=== PATIENT | female | born 2000 | race Caucasian/White ===

== ENCOUNTER 2019-03-03 10:44 | Observation (INO) ==
[2019-03-03] MEDS ORDERED: SODIUM CHLORIDE 0.9% 500 ML IV STA (11:32)
[2019-03-03] MEDS ORDERED: ACETAMINOPHEN 500 MG TABLET ONE (12:27)
[2019-03-03] MEDS ORDERED: ACETAMINOPHEN 500 MG TABLET PO STA (12:33)
[2019-03-03 13:00] LABS: Apearance,Urine Slightly Hazy (Clear); Glucose,Urine (UA) Negative (Negative); Ketones,Urine 3+ mg/dL (Negative); Nitrite,Urine Negative (Negative); Protein,Urine 1+ MG/DL; Urine Color Yellow (Yellow); Urine Specific Gravity 1.015 (1.001-1.035)
[2019-03-03 13:01] LABS: Bacteria,Urine 2+ /HPF (Few); Bilirubin,Urine Negative (Negative); Blood, Urine Large mg/dL (Negative); RBC,Urine TNTC /HPF (0-4); Squamous Epithelial Cell,Urine Few /HPF (0-10); Urine Urobilinogen < 2.0 EU/DL (0.2-1.0); WBC,Urine Occasional /HPF (0-6)
[2019-03-03] MEDS ORDERED: ONDANSETRON 4 MG/2 ML VIAL ONE (13:21)
[2019-03-03] MEDS ORDERED: MAGNESIUM HYDROXIDE SUSP 30 ML UDCUP PO PRN (13:28)
[2019-03-03] MEDS ORDERED: IBUPROFEN 800 MG TABLET PO PRN (13:28)
[2019-03-03] MEDS ORDERED: BISACODYL 10 MG SUPP RECTAL PRN (13:28)
[2019-03-03] MEDS ORDERED: LACTATED RINGERS 1,000 ML IV SCH (13:30)
[2019-03-03] MEDS ORDERED: MEPERIDINE 50 MG/1 ML VIAL IM STA (13:31)
[2019-03-03] MEDS ORDERED: MEPERIDINE 25 MG/1 ML VIAL ONE (13:38)
[2019-03-03] MEDS: ONDANSETRON 4 MG/2 ML VIAL IV PRN ×2 (14:00→19:46)
[2019-03-03] MEDS ORDERED: MEPERIDINE 25 MG/1 ML VIAL IV PRN (15:31)
[2019-03-03] MEDS: LACTATED RINGERS 1,000 ML IV SCH ×2 (15:50→23:54)
[2019-03-03] MEDS: AMPICILLIN INJ 2,000 MG in SODIUM CHLORIDE 0.9% 100 ML IV SCH ×2 (16:10→22:08)
[2019-03-03 17:40] LABS: Basophils # 0.1 10*3/uL (0.0-0.2); Basophils % 0.3 % (0.0-0.8); Hematocrit 36.7 VOL% (35.7-47.0); Hemoglobin 11.7 GM/DL (12.0-16.0); Immature Granulocytes Absolute 0.22 #; Lymphocytes # 0.7 10*3/uL (1.4-4.0); Lymphocytes % 3.1 % (21.3-54.2); Mean Corpuscular HGB Conc 31.9 GM/DL (32-36); Mean Corpuscular Volume 91.1 FL (87-102); Mean Platelet Volume 10.3 FL (9.6-12.0); Monocytes % 1.2 % (1.7-12.7); Neutrophils % 94.4 % (38.7-73.9); Platelet Count 254 T/CUMM (130-400); Red Blood Count 4.03 MC/CUMM (3.8-5.5); Red Cell Distribution Width 13.3 % (9.3-17.3); White Blood Count 22.3 T/CUMM (4-12)
[2019-03-03 17:52] LABS: Calcium 8.7 MG/DL (8.5-10.1); Osmolality,Calculated 273.7 MOS/KG (273-304)
[2019-03-03 18:01] LABS: Band Neutrophils 1 % (0-10); Lymphocytes 5 % (20-55); Platelet Estimate Normal; Segmented Neutrophils 94 % (50-85); Total Cells Counted 100
[2019-03-03] MEDS: MEPERIDINE 25 MG/1 ML VIAL IV PRN ×2 (18:10→22:08)
[2019-03-03 18:21] LABS: Apearance,Urine CLEAR (Clear); Bilirubin,Urine Negative (Negative); Blood, Urine Small mg/dL (Negative); Glucose,Urine (UA) Negative (Negative); Ketones,Urine 80 mg/dL (Negative); Mucus,Urine Occasional /LPF (Occasional); Nitrite,Urine Negative (Negative); Protein,Urine Negative; RBC,Urine 14 /HPF (0-4); Squamous Epithelial Cell,Urine Occasional /HPF (0-10); Urine Color Straw (Yellow); Urine Specific Gravity 1.017 (1.001-1.035); Urine Urobilinogen < 2.0 EU/DL (0.2-1.0); WBC,Urine 2 /HPF (0-6)
[2019-03-03] MEDS: DOCUSATE SODIUM 100 MG CAPSULE PO SCH (21:15)
[2019-03-03] MEDS: TAMSULOSIN 0.4 MG CAPSULE PO SCH (21:15)
[2019-03-03] MEDS: PROMETHAZINE 25 MG/1 ML VIAL IM PRN (21:23)
[2019-03-04] MEDS: MEPERIDINE 25 MG/1 ML VIAL IV PRN ×6 (01:55→23:43)
[2019-03-04] MEDS: ONDANSETRON 4 MG/2 ML VIAL IV PRN ×5 (01:56→23:44)
[2019-03-04] MEDS ORDERED: ALUMINUM/MAGNES/SIMETH MAX STR 30 ML UDCUP PO PRN (02:01)
[2019-03-04] MEDS: AMPICILLIN INJ 2,000 MG in SODIUM CHLORIDE 0.9% 100 ML IV SCH ×4 (04:42→22:10)
[2019-03-04] MEDS: LACTATED RINGERS 1,000 ML IV SCH ×2 (06:35→22:10)
[2019-03-04] MEDS: FAMOTIDINE 20 MG/2 ML VIAL IV SCH ×2 (08:22→20:59)
[2019-03-04] MEDS: PROMETHAZINE 25 MG/1 ML VIAL IM PRN (08:26)
[2019-03-04] MEDS: ACETAMINOPHEN 325 MG TABLET PO PRN ×2 (12:42→20:05)
[2019-03-04] MEDS: DOCUSATE SODIUM 100 MG CAPSULE PO SCH ×2 (15:28→20:58)
[2019-03-04] MEDS: TAMSULOSIN 0.4 MG CAPSULE PO SCH (20:58)
[2019-03-05] MEDS: ONDANSETRON 4 MG/2 ML VIAL IV PRN (03:19)
[2019-03-05] MEDS: AMPICILLIN INJ 2,000 MG in SODIUM CHLORIDE 0.9% 100 ML IV SCH ×2 (04:26→08:30)
[2019-03-05] MEDS: ACETAMINOPHEN 325 MG TABLET PO PRN (05:39)
[2019-03-05] MEDS: LACTATED RINGERS 1,000 ML IV SCH (06:41)
[2019-03-05] MEDS: DOCUSATE SODIUM 100 MG CAPSULE PO SCH (08:12)
[2019-03-05] MEDS: FAMOTIDINE 20 MG/2 ML VIAL IV SCH (08:30)
[2019-03-05] MEDS: MEPERIDINE 25 MG/1 ML VIAL IV PRN (08:31)
[2019-03-05 11:35] VITALS: BP 116/61
== END 2019-03-05 14:20 | disposition home or self-care (01) ==
LOC: N.EDINP 10:44 → N.ED 10:44 → N.OB 14:29
PROVIDERS: ADMIT Obstetrics & Gynecology; ATTEND Obstetrics & Gynecology

== ENCOUNTER 2019-03-30 13:14 | Inpatient (IN) ==
[2019-03-30] MEDS ORDERED: SODIUM CHLORIDE 0.9% 1,000 ML IV STA ×2 (14:51→15:29)
[2019-03-30] MEDS ORDERED: HYDROmorphone 2 MG/1 ML VIAL IV STA (14:51)
[2019-03-30] MEDS ORDERED: ONDANSETRON 4 MG/2 ML VIAL IV STA (14:51)
[2019-03-30 15:33] LABS: Basophils % 0.2 % (0.0-0.8); Eosinophils % 0.1 % (0.00-10.9); Hematocrit 38.2 VOL% (35.7-47.0); Hemoglobin 12.1 GM/DL (12.0-16.0); Immature Granulocytes % 1.1 %; Immature Granulocytes Absolute 0.18 #; Lymphocytes # 1.2 10*3/uL (1.4-4.0); Lymphocytes % 7.4 % (21.3-54.2); Mean Corpuscular HGB Conc 31.7 GM/DL (32-36); Mean Corpuscular Volume 91.8 FL (87-102); Mean Platelet Volume 10.5 FL (9.6-12.0); Monocytes % 2.9 % (1.7-12.7); Neutrophils % 88.3 % (38.7-73.9); Platelet Count 227 T/CUMM (130-400); Red Blood Count 4.16 MC/CUMM (3.8-5.5); Red Cell Distribution Width 13.8 % (9.3-17.3); White Blood Count 16.6 T/CUMM (4-12)
[2019-03-30 15:34] LABS: Amorphous Crystals,Urine Occasional /HPF (Few); Apearance,Urine CLOUDY (Clear); Bilirubin,Urine Negative (Negative); Blood, Urine Negative (Negative); Glucose,Urine (UA) Negative (Negative); Ketones,Urine 80 mg/dL (Negative); Mucus,Urine Occasional /LPF (Occasional); Nitrite,Urine Negative (Negative); Protein,Urine 30 MG/DL; Squamous Epithelial Cell,Urine Occasional /HPF (0-10); Urine Color Amber (Yellow); Urine Specific Gravity 1.017 (1.001-1.035); Urine Urobilinogen < 2.0 EU/DL (0.2-1.0)
[2019-03-30 15:41] LABS: Alanine Aminotransferase 19 U/L (13-56); Albumin 3.3 G/DL (3.4-5.0); Alkaline Phosphatase 62 U/L (45-117); Aspartate Amino Transferase 14 U/L (0-37); Bilirubin,Total < 0.39 MG/DL (0.2-1.0); Blood Urea Nitrogen 7 MG/DL (7-18); Calcium 8.7 MG/DL (8.5-10.1); Glucose 103 MG/DL (74-106); Osmolality,Calculated 274.5 MOS/KG (273-304); Total Protein 7.2 G/DL (6.4-8.3)
[2019-03-30] MEDS ORDERED: LACTATED RINGERS 1,000 ML IV SCH (16:56)
[2019-03-30] MEDS ORDERED: IBUPROFEN 800 MG TABLET PO PRN (16:56)
[2019-03-30] MEDS ORDERED: MAGNESIUM HYDROXIDE SUSP 30 ML UDCUP PO PRN (16:56)
[2019-03-30] MEDS ORDERED: BISACODYL 10 MG SUPP RECTAL PRN (16:56)
[2019-03-30] MEDS: ACETAMINOPHEN 325 MG TABLET PO PRN (17:47)
[2019-03-30] MEDS: ONDANSETRON 4 MG/2 ML VIAL IV PRN (20:42)
[2019-03-30] MEDS: HYDROmorphone 2 MG/1 ML VIAL IV PRN (20:48)
[2019-03-30] MEDS: TAMSULOSIN 0.4 MG CAPSULE PO SCH (21:35)
[2019-03-30] MEDS: DOCUSATE SODIUM 100 MG CAPSULE PO SCH (21:51)
[2019-03-30] MEDS: ALUMINUM/MAGNES/SIMETH MAX STR 30 ML UDCUP PO PRN (23:43)
[2019-03-31] MEDS: HYDROmorphone 2 MG/1 ML VIAL IV PRN ×5 (01:06→21:02)
[2019-03-31] MEDS: LACTATED RINGERS 1,000 ML IV SCH ×3 (01:26→17:05)
[2019-03-31] MEDS: ONDANSETRON 4 MG/2 ML VIAL IV PRN ×4 (02:37→18:55)
[2019-03-31] MEDS: DOCUSATE SODIUM 100 MG CAPSULE PO SCH ×2 (14:30→21:02)
[2019-03-31] MEDS: TAMSULOSIN 0.4 MG CAPSULE PO SCH (21:02)
[2019-03-31] MEDS: ALUMINUM/MAGNES/SIMETH MAX STR 30 ML UDCUP PO PRN (21:35)
[2019-04-01] MEDS: ONDANSETRON 4 MG/2 ML VIAL IV PRN ×3 (02:01→15:48)
[2019-04-01] MEDS: HYDROmorphone 2 MG/1 ML VIAL IV PRN ×2 (02:04→10:07)
[2019-04-01] MEDS: DOCUSATE SODIUM 100 MG CAPSULE PO SCH ×2 (09:52→20:44)
[2019-04-01] MEDS: ACETAMINOPHEN 325 MG TABLET PO PRN (16:05)
[2019-04-01] MEDS: ACETAMINOPHEN/CODEINE 300-30 MG TABLET PO PRN (18:19)
[2019-04-01] MEDS: TAMSULOSIN 0.4 MG CAPSULE PO SCH (20:43)
[2019-04-02] MEDS ORDERED: ONDANSETRON 4 MG TABLET PO PRN
[2019-04-02] MEDS: ONDANSETRON 4 MG/2 ML VIAL IV PRN (00:03)
[2019-04-02] MEDS: ACETAMINOPHEN/CODEINE 300-30 MG TABLET PO PRN (00:33)
[2019-04-02 07:45] VITALS: BP 80/43
[2019-04-02] MEDS: DOCUSATE SODIUM 100 MG CAPSULE PO SCH (08:51)
[2019-04-05 13:59] LABS: Stone Source Kidney
[2019-04-05 14:56] LABS: Stone Source Kidney
== END 2019-04-02 12:00 | disposition home or self-care (01) | DRG 776 ==
LOC: N.ED 13:14 → N.EDINP 15:33 → N.OB 15:59
PROVIDERS: ADMIT Obstetrics & Gynecology; ATTEND Obstetrics & Gynecology

== ENCOUNTER 2019-08-16 06:08 | Inpatient (IN) ==
[2019-08-16] MEDS ORDERED: ONDANSETRON 4 MG/2 ML VIAL IV PRN (06:21)
[2019-08-16] MEDS ORDERED: MEPERIDINE 50 MG/1 ML VIAL IV PRN (06:21)
[2019-08-16 06:38] LABS: Basophils # 0.1 10*3/uL (0.0-0.2); Basophils % 0.4 % (0.0-0.8); Eosinophils # 0.2 10*3/uL (0.0-0.87); Eosinophils % 1.1 % (0.00-10.9); Hematocrit 37.1 VOL% (35.7-47.0); Hemoglobin 12.2 GM/DL (12.0-16.0); Immature Granulocytes % 2.6 %; Lymphocytes % 19.6 % (21.3-54.2); Mean Corpuscular HGB Conc 32.9 GM/DL (32-36); Mean Corpuscular Volume 92.3 FL (87-102); Mean Platelet Volume 10.4 FL (9.6-12.0); Monocytes % 4.9 % (1.7-12.7); Neutrophils % 71.4 % (38.7-73.9); Platelet Count 243 T/CUMM (130-400); Red Blood Count 4.02 MC/CUMM (3.8-5.5); Red Cell Distribution Width 14.4 % (9.3-17.3); White Blood Count 15.2 T/CUMM (4-12)
[2019-08-16] MEDS: LACTATED RINGERS 1,000 ML IV SCH ×2 (06:48→14:47)
[2019-08-16 06:57] LABS: Apearance,Urine CLEAR (Clear); Bacteria,Urine Occasional /HPF (Few); Bilirubin,Urine Negative (Negative); Blood, Urine Negative (Negative); Glucose,Urine (UA) Negative (Negative); Ketones,Urine Negative (Negative); Mucus,Urine Occasional /LPF (Occasional); Nitrite,Urine Negative (Negative); Protein,Urine Negative; RBC,Urine 1 /HPF (0-4); Squamous Epithelial Cell,Urine Occasional /HPF (0-10); Urine Color Yellow (Yellow); Urine Urobilinogen < 2.0 EU/DL (0.2-1.0); WBC,Urine 1 /HPF (0-6)
[2019-08-16 07:08] LABS: Albumin 2.8 G/DL (3.4-5.0); Bilirubin,Total 0.6 MG/DL (0.2-1.0); Calcium 9.3 MG/DL (8.5-10.1); Osmolality,Calculated 276.5 MOS/KG (273-304); Total Protein 6.7 G/DL (6.4-8.3)
[2019-08-16] MEDS: OXYTOCIN/LR 20 UNIT/1,000 ML BAG IV SCH ×2 (07:17→19:23)
[2019-08-16] MEDS ORDERED: FAMOTIDINE 20 MG/2 ML VIAL IV ONE (07:49)
[2019-08-16] MEDS ORDERED: CITRIC ACID/SODIUM CITRATE 30 ML UDCUP PO ONE (07:49)
[2019-08-16] MEDS ORDERED: LACTATED RINGERS 1,000 ML IV ONE (07:49)
[2019-08-16] MEDS ORDERED: ePHEDrine 50 MG/ML AMP IV PRN (07:49)
[2019-08-16] MEDS ORDERED: diphenhydrAMINE 50 MG/1 ML VIAL IV PRN ×2 (07:50)
[2019-08-16] MEDS ORDERED: hydrOXYzine HCL 25 MG/1 ML VIAL IM PRN (07:50)
[2019-08-16] MEDS ORDERED: PROMETHAZINE 25 MG/1 ML VIAL IM ONE (07:50)
[2019-08-16] MEDS ORDERED: NALOXONE 0.4 MG/ML VIAL IV PRN (07:50)
[2019-08-16] MEDS ORDERED: fentaNYL 2 MCG/ROPIV 0.2% EPID 100 ML EPIDURAL SCH (08:00)
[2019-08-16] MEDS ORDERED: LACTATED RINGERS 1,000 ML IV SCH (08:00)
[2019-08-16] MEDS ORDERED: METOPROLOL TARTRATE 25 MG TABLET PO SCH (09:00)
[2019-08-16 11:05] LABS: Apearance,Urine CLEAR (Clear); Bacteria,Urine Occasional /HPF (Few); Bilirubin,Urine Negative (Negative); Blood, Urine Negative (Negative); Glucose,Urine (UA) Negative (Negative); Ketones,Urine Negative (Negative); Mucus,Urine Occasional /LPF (Occasional); Nitrite,Urine Negative (Negative); Protein,Urine Negative; Squamous Epithelial Cell,Urine Occasional /HPF (0-10); Urine Color Straw (Yellow); Urine Specific Gravity 1.005 (1.001-1.035); Urine Urobilinogen < 2.0 EU/DL (0.2-1.0); WBC,Urine 1 /HPF (0-6)
[2019-08-16] MEDS ORDERED: miSOPROStoL 200 MCG TABLET ONE (15:47)
[2019-08-16] MEDS ORDERED: METHYLERGONOVINE 0.2 MG/1 ML AMP ONE (15:48)
[2019-08-16 16:30] LABS: Cord Venous Blood HCO3 22.5 MMOL/L; Cord Venous Blood PCO2 37.5 MMHG; Cord Venous Blood PO2 29.1
[2019-08-16] MEDS ORDERED: OXYTOCIN/LR 20 UNIT/1,000 ML BAG IV ONE (20:34)
[2019-08-16] MEDS ORDERED: oxyCODONE/ACETAMINOPHEN 5-325 MG TABLET PO PRN ×2 (20:34)
[2019-08-16] MEDS ORDERED: WITCH HAZEL PADS 100/JAR TOP PRN (20:34)
[2019-08-16] MEDS ORDERED: LANOLIN 50% CREAM 0.3 OZ TUBE TOP PRN (20:34)
[2019-08-16] MEDS ORDERED: IBUPROFEN 800 MG TABLET PO PRN (20:34)
[2019-08-16] MEDS ORDERED: ACETAMINOPHEN 325 MG TABLET PO PRN (20:34)
[2019-08-16] MEDS ORDERED: BENZOCAINE 20%/MENTHOL 0.5% SPRAY 56 GM CAN TOP PRN (20:34)
[2019-08-16] MEDS ORDERED: RHO(D) IMMUNE GLOBULIN 300 MCG SYRINGE IM ONE (20:34)
[2019-08-16] MEDS ORDERED: DIPH/TET/ACEL PERT BOOSTER VACCINE 0.5 ML VIAL IM ONE (20:34)
[2019-08-16] MEDS ORDERED: HYDROCORTISONE 2.5% RECTAL CREAM 30 GM TUBE TOP PRN (20:34)
[2019-08-16] MEDS ORDERED: MEASLES/MUMPS/RUBELLA VACCINE 0.5 ML VIAL SUBCUT ONE (20:34)
[2019-08-16] MEDS ORDERED: BISACODYL 10 MG SUPP RECTAL PRN (20:34)
[2019-08-16] MEDS: METOPROLOL TARTRATE 25 MG TABLET PO SCH (21:11)
[2019-08-16] MEDS: DOCUSATE SODIUM 100 MG CAPSULE PO SCH (21:13)
[2019-08-17 05:36] LABS: Basophils # 0.1 10*3/uL (0.0-0.2); Basophils % 0.3 % (0.0-0.8); Eosinophils # 0.2 10*3/uL (0.0-0.87); Eosinophils % 0.8 % (0.00-10.9); Hematocrit 34.4 VOL% (35.7-47.0); Hemoglobin 11.3 GM/DL (12.0-16.0); Immature Granulocytes % 1.2 %; Immature Granulocytes Absolute 0.21 #; Lymphocytes # 2.8 10*3/uL (1.4-4.0); Lymphocytes % 15.6 % (21.3-54.2); Mean Corpuscular HGB Conc 32.8 GM/DL (32-36); Mean Corpuscular Volume 91.7 FL (87-102); Mean Platelet Volume 11.2 FL (9.6-12.0); Monocytes % 7.2 % (1.7-12.7); Neutrophils % 74.9 % (38.7-73.9); Platelet Count 229 T/CUMM (130-400); Red Blood Count 3.75 MC/CUMM (3.8-5.5); Red Cell Distribution Width 14.5 % (9.3-17.3)
[2019-08-17 07:20] VITALS: BP 124/75
[2019-08-17] MEDS: DOCUSATE SODIUM 100 MG CAPSULE PO SCH (07:58)
[2019-08-17] MEDS: METOPROLOL TARTRATE 25 MG TABLET PO SCH (11:45)
== END 2019-08-17 11:25 | disposition home or self-care (01) | DRG 560 ==
LOC: N.LDOUT 06:08 → N.LD 06:10 → N.OB 20:05
PROVIDERS: ADMIT Obstetrics & Gynecology; ATTEND Obstetrics & Gynecology

== ENCOUNTER 2021-03-21 05:34 | Inpatient (IN) ==
[2021-03-21] MEDS ORDERED: MEPERIDINE 50 MG/1 ML VIAL IV PRN (05:42)
[2021-03-21] MEDS ORDERED: ONDANSETRON 4 MG/2 ML VIAL IV PRN ×2 (05:42→09:37)
[2021-03-21] MEDS ORDERED: BUTORPHANOL 2 MG/ML VIAL IV PRN (05:42)
[2021-03-21] MEDS ORDERED: LACTATED RINGERS 1,000 ML IV SCH (06:00)
[2021-03-21] MEDS: OXYTOCIN/LR 20 UNIT/1,000 ML BAG IV SCH ×2 (06:06→14:43)
[2021-03-21 06:30] LABS: Basophils % 0.2 % (0.0-0.8); Eosinophils # 0.1 10*3/uL (0.0-0.87); Eosinophils % 0.9 % (0.00-10.9); Hematocrit 37.8 VOL% (35.7-47.0); Hemoglobin 12.1 GM/DL (12.0-16.0); Immature Granulocytes % 1.4 %; Immature Granulocytes Absolute 0.19 #; Lymphocytes # 2.3 10*3/uL (1.4-4.0); Lymphocytes % 16.6 % (21.3-54.2); Mean Platelet Volume 11.1 FL (9.6-12.0); Monocytes % 7.2 % (1.7-12.7); Neutrophils % 73.7 % (38.7-73.9); Platelet Count 219 T/CUMM (130-400); Red Blood Count 4.11 MC/CUMM (3.8-5.5); Red Cell Distribution Width 14.8 % (9.3-17.3); White Blood Count 13.9 T/CUMM (4-12)
[2021-03-21 06:49] LABS: Alanine Aminotransferase 16 U/L (13-56); Albumin 2.8 G/DL (3.4-5.0); Alkaline Phosphatase 154 U/L (45-117); Aspartate Amino Transferase 14 U/L (0-37); Bilirubin,Total < 0.39 MG/DL (0.20-1.00); Blood Urea Nitrogen 9 MG/DL (7-18); Calcium 9.1 MG/DL (8.5-10.1); Carbon Dioxide 19 MMOL/L (21-32); Estimated Glom Filtration Rate 139 ML/MIN; Glucose 93 MG/DL (74-106); Osmolality,Calculated 271.8 MOS/KG (273-304); Potassium 3.9 MMOL/L (3.5-5.1); Sodium 137 MMOL/L (136-145)
[2021-03-21] MEDS ORDERED: LACTATED RINGERS 1,000 ML IV ONE (09:37)
[2021-03-21] MEDS ORDERED: NALOXONE 0.4 MG/ML VIAL IV PRN (09:37)
[2021-03-21] MEDS ORDERED: diphenhydrAMINE 50 MG/1 ML VIAL IV PRN ×2 (09:37)
[2021-03-21] MEDS ORDERED: FAMOTIDINE 20 MG/2 ML VIAL IV ONE (09:37)
[2021-03-21] MEDS ORDERED: LACTATED RINGERS 250 ML IV PRN (09:37)
[2021-03-21] MEDS ORDERED: hydrOXYzine HCL 25 MG/1 ML VIAL IM PRN (09:37)
[2021-03-21] MEDS ORDERED: ePHEDrine 50 MG/ML VIAL IV PRN (09:37)
[2021-03-21] MEDS ORDERED: CITRIC ACID/SODIUM CITRATE 30 ML UDCUP PO ONE (09:37)
[2021-03-21] MEDS ORDERED: PROMETHAZINE 25 MG/1 ML VIAL IM PRN (09:37)
[2021-03-21] MEDS ORDERED: fentaNYL 2 MCG/ROPIV 0.2% EPID 100 ML EPIDURAL SCH (10:00)
[2021-03-21] MEDS ORDERED: miSOPROStoL 200 MCG TABLET ONE (11:36)
[2021-03-21] MEDS ORDERED: TRANEXAMIC ACID 1,000 MG/10 ML VIAL ONE (11:36)
[2021-03-21] MEDS ORDERED: CARBOPROST TROMETHAMINE 250 MCG/ML AMP IM ONE (11:37)
[2021-03-21] MEDS ORDERED: METHYLERGONOVINE 0.2 MG/1 ML AMP ONE (11:37)
[2021-03-21] MEDS ORDERED: OXYTOCIN/LR 20 UNIT/1,000 ML BAG IV ONE (11:37)
[2021-03-21 12:04] LABS: Cord Arterial Blood HCO3 20.3 MMOL/L
[2021-03-21 12:05] LABS: Cord Venous Blood HCO3 22.3 MMOL/L; Cord Venous Blood PCO2 38.9 MMHG; Cord Venous Blood PO2 28.8 MMHG
[2021-03-21 12:09] LABS: Bacteria,Urine Occasional /HPF (Few); Bilirubin,Urine Negative (Negative); Blood, Urine Small mg/dL (Negative); Glucose,Urine (UA) Negative (Negative); Ketones,Urine 5 mg/dL (Negative); Mucus,Urine Occasional /LPF (Occasional); Nitrite,Urine Negative (Negative); Protein,Urine Negative; RBC,Urine <1 /HPF (0-4); Squamous Epithelial Cell,Urine Occasional /HPF (0-10); Urine Appearance CLEAR (Clear); Urine Color Yellow (Yellow); Urine Specific Gravity 1.014 (1.001-1.035)
[2021-03-21] MEDS ORDERED: MEASLES/MUMPS/RUBELLA VACCINE 0.5 ML VIAL SUBCUT ONE (17:47)
[2021-03-21] MEDS ORDERED: ACETAMINOPHEN 325 MG TABLET PO PRN (17:47)
[2021-03-21] MEDS ORDERED: oxyCODONE/ACETAMINOPHEN 5-325 MG TABLET PO PRN (17:47)
[2021-03-21] MEDS ORDERED: HYDROCORTISONE 2.5% RECTAL CREAM 30 GM TUBE TOP PRN (17:47)
[2021-03-21] MEDS ORDERED: RHO(D) IMMUNE GLOBULIN 300 MCG SYRINGE IM ONE (17:47)
[2021-03-21] MEDS ORDERED: LANOLIN 50% CREAM 0.3 OZ TUBE TOP PRN (17:47)
[2021-03-21] MEDS ORDERED: DIPH/TET/ACEL PERT BOOSTER VACCINE 0.5 ML VIAL IM ONE (17:47)
[2021-03-21] MEDS ORDERED: BISACODYL 10 MG SUPP RECTAL PRN (17:47)
[2021-03-21] MEDS ORDERED: WITCH HAZEL PADS 100/JAR TOP PRN (17:47)
[2021-03-21] MEDS ORDERED: BENZOCAINE 20%/MENTHOL 0.5% SPRAY 56 GM CAN TOP PRN (17:47)
[2021-03-21] MEDS: IBUPROFEN 800 MG TABLET PO PRN (18:33)
[2021-03-21] MEDS: DOCUSATE SODIUM 100 MG CAPSULE PO SCH (21:15)
[2021-03-21] MEDS: oxyCODONE/ACETAMINOPHEN 5-325 MG TABLET PO PRN (22:33)
[2021-03-22] MEDS: IBUPROFEN 800 MG TABLET PO PRN ×2 (03:57→12:31)
[2021-03-22 05:46] LABS: Basophils % 0.2 % (0.0-0.8); Eosinophils # 0.1 10*3/uL (0.0-0.87); Eosinophils % 0.9 % (0.00-10.9); Hematocrit 35.4 VOL% (35.7-47.0); Hemoglobin 11.4 GM/DL (12.0-16.0); Immature Granulocytes % 0.8 %; Lymphocytes # 2.7 10*3/uL (1.4-4.0); Lymphocytes % 20.5 % (21.3-54.2); Mean Corpuscular HGB Conc 32.2 GM/DL (32-36); Mean Corpuscular Volume 91.5 FL (87-102); Monocytes % 7.8 % (1.7-12.7); Neutrophils % 69.8 % (38.7-73.9); Platelet Count 185 T/CUMM (130-400); Red Blood Count 3.87 MC/CUMM (3.8-5.5); Red Cell Distribution Width 14.8 % (9.3-17.3); White Blood Count 13.2 T/CUMM (4-12)
[2021-03-22] MEDS: DOCUSATE SODIUM 100 MG CAPSULE PO SCH ×2 (08:20→20:12)
[2021-03-22] MEDS: oxyCODONE/ACETAMINOPHEN 5-325 MG TABLET PO PRN ×3 (08:20→20:11)
[2021-03-23] MEDS: IBUPROFEN 800 MG TABLET PO PRN ×2 (00:48→09:02)
[2021-03-23] MEDS: oxyCODONE/ACETAMINOPHEN 5-325 MG TABLET PO PRN (04:38)
[2021-03-23] MEDS: DOCUSATE SODIUM 100 MG CAPSULE PO SCH (09:01)
[2021-03-23 09:16] VITALS: BP 121/81
== END 2021-03-23 13:25 | disposition home or self-care (01) | DRG 560 ==
LOC: N.LD 05:34 → N.OB 17:39
PROVIDERS: ADMIT Specialist; ATTEND Specialist